=== PATIENT | female | born 1995 | race Caucasian/White ===

== ENCOUNTER 2021-03-04 09:31 | Emergency (ER) | payer SELFPAY ==
[2021-03-04 09:52] VITALS: BP 124/77; PULSE 66; TEMP 98; BMI 30.2
[2021-03-04] MEDS ORDERED: IBUPROFEN 600 MG TABLET (FP) PO ONE ×2 (10:37→10:40)
== END 2021-03-04 11:16 | disposition home or self-care (01) ==
LOC: JER 09:31
DX: K05.10 Chronic gingivitis, plaque induced (principal)
CPT/HCPCS: 99283-25

== ENCOUNTER 2021-05-14 12:11 | Emergency (ER) | payer SELFPAY ==
[2021-05-14 12:22] VITALS: BP 118/77; PULSE 109; TEMP 99.1; BMI 27.7
[2021-05-14] MEDS ORDERED: ACETAMINOPHEN 325 MG TABLET (FP) PO ONE (13:34)
[2021-05-14] MEDS ORDERED: ACETAMINOPHEN 325 MG TABLET (FP) ONE (13:47)
== END 2021-05-14 14:00 | disposition home or self-care (01) ==
LOC: JCOVINFU 12:11 → JER 12:11 → JCOVINFU 14:00
DX: J06.9 Acute upper respiratory infection, unspecified (principal)
CPT/HCPCS: 87651; 87804; 99283-25; C9803; U0003; U0005

== ENCOUNTER 2023-01-03 14:43 | Emergency (ER) | payer OTHER ==
[2023-01-03 15:44] VITALS: BP 138/78; PULSE 67; RESP 14; TEMP 98.2; BMI 29.0
== END 2023-01-03 16:50 | disposition left against medical advice (07) ==
LOC: JER 14:43
DX: R10.30 Lower abdominal pain, unspecified (principal)
CPT/HCPCS: 99281-25

== ENCOUNTER 2023-02-21 09:12 | Emergency (ER) | payer OTHER ==
[2023-02-21 09:33] VITALS: BP 122/48; PULSE 78; RESP 18; TEMP 97.6; BMI 29.0
[2023-02-21] MEDS ORDERED: MAG HYDROX/AL HYDROX/SIMETH 30 ML UNIT-DOSE CUP PO ONE (10:28)
[2023-02-21] MEDS ORDERED: ACETAMINOPHEN 500 MG TABLET (FP) PO ONE (10:28)
[2023-02-21] MEDS ORDERED: FAMOTIDINE 20 MG TABLET PO ONE (10:28)
[2023-02-21] MEDS ORDERED: FAMOTIDINE 20 MG TABLET ONE (11:22)
[2023-02-21] MEDS ORDERED: MAG HYDROX/AL HYDROX/SIMETH 30 ML UNIT-DOSE CUP ONE (11:22)
[2023-02-21] MEDS ORDERED: ACETAMINOPHEN 325 MG TABLET (FP) ONE (11:22)
[2023-02-21 12:42] LABS: EPI CELLS 14 /uL (0-25.1); HYALINE CASTS 1 /uL (0-3.1); URINE APPEARANCE CLEAR; URINE BACTERIA 729 /uL (0-1359); URINE BILIRUBIN NEGATIVE (NEGATIVE); URINE COLOR YELLOW; URINE GLUCOSE (UA) NEGATIVE (NEGATIVE); URINE KETONE TRACE (NEGATIVE); URINE LEUK ESTERASE NEGATIVE (NEGATIVE); URINE NITRITE NEGATIVE (NEGATIVE); URINE PROTEIN TRACE (NEGATIVE); URINE RBC 203 /uL (0-23.9); URINE UROBILINOGEN 0.2 mg/dL (0.2-1.0); URINE WBC 16 /uL (0-25.8)
== END 2023-02-21 14:11 | disposition home or self-care (01) ==
LOC: JER 09:12
DX: R10.84 Generalized abdominal pain (principal); R14.0 Abdominal distension (gaseous)
CPT/HCPCS: 81003; 84703; 87086; 99283-25

== ENCOUNTER 2023-08-29 20:42 | Emergency (ER) | payer OTHER ==
[2023-08-29 20:54] VITALS: TEMP 98; BMI 35.6
[2023-08-29 23:31] LABS: BASO % 0.6 % (0-2.0); HEMATOCRIT 40.3 % (32.4-45.2); HEMOGLOBIN 13.8 GM/dL (10.7-15.3); LYMPH % 26.5 % (8-40); MCH 28.2 pg (25.7-33.7); MCHC 34.1 g/dl (32.0-36.0); MEAN CELL VOLUME 82.6 fl (80-96); MEAN PLT VOLUME 9.6 fl (7.5-11.1); MONO % 6.8 % (3.8-10.2); NEUT % 62.1 % (42.8-82.8); PLATELET COUNT 254 10^3/uL (134-434); RBC 4.88 M/mm3 (3.60-5.2); RDW 13.9 % (11.6-15.6); WHITE BLOOD COUNT 10.2 K/mm3 (4.0-10.0)
[2023-08-29 23:47] LABS: POTASSIUM 5.1 mmol/L (3.5-5.1)
[2023-08-29 23:49] LABS: CALCIUM 8.6 mg/dL (8.5-10.1)
[2023-08-29 23:50] LABS: ALBUMIN 3.8 g/dl (3.4-5.0); BLOOD UREA NITROGEN 16.2 mg/dL (7-18)
[2023-08-29 23:53] LABS: CREATININE 0.7 mg/dL (0.55-1.3)
[2023-08-29] MEDS ORDERED: ACETAMINOPHEN INJECTION 100 ML IVPB ONE (23:53)
[2023-08-29 23:54] LABS: EPI CELLS 14 /uL (0-25.1); HYALINE CASTS 0 /uL (0-3.1); PH,URINE 5.5 (5.0-8.0); URINE APPEARANCE CLEAR; URINE BACTERIA 698 /uL (0-1359); URINE BILIRUBIN NEGATIVE (NEGATIVE); URINE COLOR YELLOW; URINE GLUCOSE (UA) NEGATIVE (NEGATIVE); URINE KETONE NEGATIVE (NEGATIVE); URINE LEUK ESTERASE NEGATIVE (NEGATIVE); URINE NITRITE NEGATIVE (NEGATIVE); URINE PROTEIN NEGATIVE (NEGATIVE); URINE RBC 26 /uL (0-23.9); URINE UROBILINOGEN 0.2 mg/dL (0.2-1.0); URINE WBC 8 /uL (0-25.8)
[2023-08-29 23:54] LABS: BILIRUBIN,TOTAL 0.8 mg/dL (0.2-1); TOT PROT 8.1 g/dl (6.4-8.2)
[2023-08-29 23:56] LABS: HCG,QUALITATIVE URINE Negative
[2023-08-29] MEDS: ACETAMINOPHEN 1000 MG/100 ML BAG IVPB ONE (23:56)
[2023-08-30] MEDS ORDERED: CEPHALEXIN MONOHYDRATE 500 MG CAPSULE (UD) ONE (01:49)
[2023-08-30] MEDS: CEPHALEXIN MONOHYDRATE 500 MG CAPSULE (UD) PO ONE (01:50)
[2023-08-30 03:15] VITALS: BP 131/74; PULSE 69; RESP 18
== END 2023-08-30 03:54 | disposition home or self-care (01) ==
LOC: JER 20:42
DX: R10.813 Right lower quadrant abdominal tenderness (principal); R10.814 Left lower quadrant abdominal tenderness; N39.0 Urinary tract infection, site not specified
CPT/HCPCS: 36415; 74177-TC; 76830-TC; 80053; 81003; 83690; 84703; 85025; 87086; 87491; 87591; 87661; 99285-25; J0131

== ENCOUNTER 2024-09-13 13:00 | Inpatient (IN) | payer OTHER ==
[2024-09-13 15:17] LABS: ABSOLUTE IMMATURE GRANULOCYTES 0.07 x10^3/uL (0.0-0.031); BASOPHILS # 0.04 x10^3/uL (0.01-0.08); EOSINOPHIL % 1.3 % (0.7-5.8); EOSINOPHILS # 0.11 x10^3/uL (0.04-0.36); HEMATOCRIT 39.4 % (34.1-44.9); HEMOGLOBIN 13.2 g/dL (11.2-15.7); MCHC 33.5 g/dl (32.2-35.5); MEAN CELL VOLUME 83.7 fl (79.4-94.8); MEAN PLT VOLUME 12.4 fl (9.4-12.3); MONOCYTE # 0.47 x10^3/uL (0.24-0.86); MONOCYTE % 5.6 % (4.7-12.5); PLATELET COUNT 141 x10^3/uL (182-369); RDW 16.2 % (12.1-16.5)
[2024-09-13 15:35] LABS: POTASSIUM 4.1 mmol/L (3.5-5.1)
[2024-09-13 15:37] LABS: ALBUMIN 2.6 g/dl (3.4-5.0)
[2024-09-13 15:38] LABS: BLOOD UREA NITROGEN 19.3 mg/dL (7-18)
[2024-09-13 15:41] LABS: CREATININE 0.8 mg/dL (0.55-1.3)
[2024-09-13 15:42] LABS: BILIRUBIN,TOTAL 0.5 mg/dL (0.2-1); TOT PROT 6.5 g/dl (6.4-8.2)
[2024-09-13 16:40] LABS: PH,URINE 6.5 (5.0-8.0); URINE APPEARANCE Clear; URINE BILIRUBIN Negative (NEGATIVE); URINE COLOR Yellow; URINE GLUCOSE (UA) Negative (NEGATIVE); URINE KETONE Negative (NEGATIVE); URINE LEUK ESTERASE Negative (NEGATIVE); URINE NITRITE Negative (NEGATIVE); URINE PROTEIN 1+ (NEGATIVE); URINE UROBILINOGEN 0.2 mg/dL (0.2-1.0)
[2024-09-13 17:49] VITALS: BMI 37.0
[2024-09-13] MEDS: ELECTROLYTE-148 SOLN 1,000 ML IV SCH (18:24)
[2024-09-13] MEDS: LACTATED RINGERS SOLUTION 1,000 ML IV SCH (18:25)
[2024-09-13 18:45] LABS: INR 0.92 (0.83-1.09)
[2024-09-13 18:48] LABS: ACTIVATED PTT 26.8 SECONDS (25.2-36.5)
[2024-09-13] MEDS: DINOPROSTONE 10 MG VAGINAL SUPPOSITORY VG ONE (19:15)
[2024-09-13] MEDS ORDERED: BUTORPHANOL TARTRATE 2 MG/ML VIAL IVPUSH PRN (21:55)
[2024-09-13] MEDS ORDERED: AMPICILLIN SODIUM 2 GM VIAL ONE (23:40)
[2024-09-13] MEDS: AMPICILLIN - 2 GM in SODIUM CHLORIDE 100 ML IVPB ONE (23:40)
[2024-09-14] MEDS ORDERED: PROMETHAZINE HCL 25 MG/1 ML VIAL ONE (00:07)
[2024-09-14] MEDS ORDERED: BUTORPHANOL TARTRATE 2 MG/ML VIAL ONE (00:07)
[2024-09-14] MEDS: BUTORPHANOL TARTRATE 2 MG/ML VIAL IVPUSH ONE (00:15)
[2024-09-14] MEDS: PROMETHAZINE HCL 25 MG/1 ML VIAL IVPB ONE (00:15)
[2024-09-14] MEDS ORDERED: OXYTOCIN 30 UNITS in 0.9% NS 30 UNIT/500 ML INFUS.BAG IVPB ONE (01:22)
[2024-09-14] MEDS: OXYTOCIN 30 UNITS in 0.9% NS 30 UNIT/500 ML INFUS.BAG IVPB SCH (01:25)
[2024-09-14] MEDS ORDERED: OXYTOCIN 20 UNITS in 0.9% NS 20 UNIT/1,000 ML INFUS.BAG IV ONE (02:27)
[2024-09-14] MEDS ORDERED: AMPICILLIN SODIUM 1 GM VIAL ONE (02:29)
[2024-09-14] MEDS: OXYTOCIN 20 UNITS in 0.9% NS 20 UNIT/1,000 ML INFUS.BAG IV SCH (02:45)
[2024-09-14 03:07] LABS: CORD BASE EXCESS -2.9 mmol/L (0-2); CORD HCO3 22.1 mmHg (20-29); CORD PCO2 39.5 mmHg (30-78); CORD pH 7.365 (7.14-7.44)
[2024-09-14] MEDS ORDERED: METHYLERGONOVINE MALEATE 0.2 MG/1 ML AMP IM PRN (03:13)
[2024-09-14] MEDS ORDERED: BISACODYL 10 MG SUPP.RECT RC PRN (03:13)
[2024-09-14] MEDS ORDERED: BENZOCAINE 28 GM HEMORRHOIDAL OINTMENT TP PRN (03:13)
[2024-09-14] MEDS ORDERED: oxyCODONE HCL 5 MG TABLET PO PRN (03:13)
[2024-09-14] MEDS ORDERED: BENZOCAINE 20% 57 GM BOTTLE TP PRN (03:13)
[2024-09-14] MEDS ORDERED: WITCH HAZEL 50% (TUCKS) 40 PAD/JAR PAD TP PRN (03:13)
[2024-09-14] MEDS: AMPICILLIN - 1 GM in SODIUM CHLORIDE 100 ML IVPB SCH (03:14)
[2024-09-14 06:12] VITALS: RESP 18
[2024-09-14] MEDS: IBUPROFEN 600 MG TABLET (FP) PO PRN (09:43)
[2024-09-14 12:52] LABS: POC NITRAZINE POS
[2024-09-14] MEDS: DOCUSATE SODIUM 100 MG CAPSULE (FP) PO PRN (18:13)
[2024-09-15] MEDS: ACETAMINOPHEN 325 MG TABLET (FP) PO PRN (06:28)
[2024-09-15 09:00] LABS: BASOPHILS # 0.06 x10^3/uL (0.01-0.08); EOSINOPHIL % 1.1 % (0.7-5.8); EOSINOPHILS # 0.14 x10^3/uL (0.04-0.36); HEMATOCRIT 32.4 % (34.1-44.9); HEMOGLOBIN 10.4 g/dL (11.2-15.7); MCHC 32.1 g/dl (32.2-35.5); MEAN CELL VOLUME 87.1 fl (79.4-94.8); MEAN PLT VOLUME 12.3 fl (9.4-12.3); MONOCYTE # 0.58 x10^3/uL (0.24-0.86); MONOCYTE % 4.5 % (4.7-12.5); PLATELET COUNT 163 x10^3/uL (182-369)
[2024-09-15 09:31] LABS: POTASSIUM 4.3 mmol/L (3.5-5.1)
[2024-09-15 09:32] LABS: CALCIUM 9.1 mg/dL (8.5-10.1)
[2024-09-15 09:33] LABS: ALBUMIN 2.5 g/dl (3.4-5.0); BLOOD UREA NITROGEN 15.4 mg/dL (7-18)
[2024-09-15 09:36] LABS: CREATININE 0.8 mg/dL (0.55-1.3)
[2024-09-15 09:38] LABS: BILIRUBIN,TOTAL 0.4 mg/dL (0.2-1); TOT PROT 6.1 g/dl (6.4-8.2)
[2024-09-15] MEDS ORDERED: SENNOSIDES/DOCUSATE COMBO (SENNA PLUS) TABLET (UD) PO PRN (22:00)
[2024-09-16 07:11] LABS: POTASSIUM 3.7 mmol/L (3.5-5.1)
[2024-09-16 07:13] LABS: CALCIUM 8.9 mg/dL (8.5-10.1)
[2024-09-16 07:14] LABS: ALBUMIN 2.2 g/dl (3.4-5.0); BLOOD UREA NITROGEN 12.8 mg/dL (7-18)
[2024-09-16 07:16] LABS: BILIRUBIN,DIRECT 0.1 mg/dL (0.0-0.2)
[2024-09-16 07:17] LABS: CREATININE 0.7 mg/dL (0.55-1.3)
[2024-09-16 07:18] LABS: BILIRUBIN,TOTAL 0.3 mg/dL (0.2-1)
[2024-09-16 07:19] LABS: TOT PROT 5.5 g/dl (6.4-8.2)
[2024-09-16 10:27] VITALS: BP 126/83; PULSE 98; TEMP 99.2
== END 2024-09-16 15:05 | disposition home or self-care (01) | DRG 560 ==
LOC: JDEL 13:00 → JLDR 17:44 → J3W 09-14 05:22
PROVIDERS: ADMIT Obstetrics & Gynecology; ATTEND Obstetrics & Gynecology
PROC: 3E0P7VZ Introduction of Hormone into Female Reproductive, Via Natural or Artificial Opening (ICD-10-PCS; 2024-09-13)
PROC: 10E0XZZ Delivery of Products of Conception, External Approach (ICD-10-PCS; principal; 2024-09-14)
PROC: 0W8NXZZ Division of Female Perineum, External Approach (ICD-10-PCS; 2024-09-14)
DX: O14.94 Unspecified pre-eclampsia, complicating childbirth (principal); O99.213 Obesity complicating pregnancy, third trimester; O24.429 Gestational diabetes mellitus in childbirth, unspecified control; Z3A.39 39 weeks gestation of pregnancy; O99.824 Streptococcus B carrier state complicating childbirth; Z37.0 Single live birth
CPT/HCPCS: 36415; 36600; 59409; 80053; 80076; 81003; 82570; 82803; 82962; 83986-QW; 84156; 85025; 85610; 85730; 86780; 86850; 86900; 86901